=== PATIENT | female | born 1980 | race Two or more races ===

== ENCOUNTER → 2024-09-27 | Outpatient (CLI) | payer MEDICAID, SELFPAY ==
--- NOTE | 2024-09-27 16:05 | XR_ITS ---
Examination: Pelvic ultrasound, transabdominal, complete Technique: Transabdominal ultrasound of the pelvis performed using grayscale imaging Exam date and time: 5:30, 2024, 1621 hours INDICATIONS: Diagnosis uterine masses FINDINGS: Uterus 14.6 cm endometrial stripe 1.0 cm Posterior uterine fundal mass 12 x 13 mm Anterior uterine body mass 7 x 10 mm Endometrial stripe 1.0 cm Right ovary 3.1 cm arterial flow 18 mm follicular cyst Left ovary 4.5 cm [place] flow small follicles, the largest 18 mm IMPRESSION: Uterine areas of fibroid degeneration as above
--- NOTE | 2024-09-27 16:05 | XR_ITS ---
Examination: Transvaginal ultrasound of the pelvis, complete Technique: Transvaginal sonographic images pelvis performed using greer scale imaging Exam date and time: September 27, 2024, 1656 hours INDICATIONS: History uterine masses FINDINGS: Uterus 12.2 cm Posterior uterine area of fibroid degeneration 14 x 14 mm Anterior uterine body area of fibroid degeneration 9 x 11 mm Endometrial stripe 18 mm Ovaries obscured by bowel gas IMPRESSION: Uterine areas of fibroid degeneration as above.
== END | disposition home or self-care (01) ==
LOC: CDIM 15:57
PROVIDERS: PCP Nurse Practitioner Primary Care; Referring Provider Nurse Practitioner Primary Care; Visit Provider Nurse Practitioner Primary Care
DX: D25.9 Leiomyoma of uterus, unspecified (principal)
CPT/HCPCS: 76830; 76856